=== PATIENT | male | born 1960 | race Hispanic/Latino ===

== ENCOUNTER 2017-01-20 11:12 | Observation (INO) | payer OTHER ==
[~2017-01-20] VITALS: Ht 157.5 cm; Wt 69.8 kg
[~2017-01-20 11:12] MED LIST: ACID CONTROL150 MG PO; ANUSOL-HC25 MG RC; FLOMAX0.4 MG PO; GLUCOPHAGE500 MG PO; IMDUR30 MG PO; LIPITOR10 MG PO; NITROGLYCERIN0.4 MG SL; NORCO 5-325 TA1 EACH PO; OMEPRAZOLE20 MG PO; PERCOCET 5-3251 EACH PO; SEPTRA DS TABL1 EACH PO; TOPROL XL25 MG PO; ZYRTEC10 M3 PO
--- NOTE | 2017-01-20 13:52 | EKG ---
[facility] [address] [facility] [place] [address] \T\ T wave abnormality, consider anterolateral ischemia Abnormal ECG No previous ECGs available Confirmed by GALE SAL MD ([id number]) on 01/20/2017 1:52:04 PM Electronically Signed By: GALE SAL MD 01/20/17 1352 PATIENT NAME: CAMILLA MARTE Electrocardiogram DATE OF : 60 PHYSICIAN: GALE SAL MD REPORT #: [id number] REPORT IS CONFIDENTIAL AND NOT TO BE RELEASED WITHOUT AUTHORIZATION
--- NOTE | 2017-01-20 14:53 | NUR ---
01/20/17 [place] 8322-PATIENT ARRIVED TO PACU ON 10L MASK O2 SAT 100% SB WITH ST DEPRESSION PER DESHAWN CASTELAN. PATIENT NONAROUSABLE. 3 LAP SITES TO ABDOMEN GAUZE AND TAPE ICE APPLIED. GUARDS AT BEDSIDE.
--- NOTE | 2017-01-20 15:50 | NUR ---
PT TO FLOOR FROM PACU. DROWSY BUT WAKES EASILY. RATES PAIN 4/10. SCOPE SITES TO ABD X3 INTACT. 2 CO'S AT BEDSIDE. ANKLE SHACKLES IN PLACE. SCD'S IN PLACE. PT GIVEN SIPS OF WATER. DENIES NEEDS. REPORT FROM COMPACTING MACHINE OPERATOR/TENDER. CALL LIGHT IN REACH. CONT PULSE OX IN PLACE. 98% ON RA.
--- NOTE | 2017-01-20 16:50 | NUR ---
PT REQUESTING PAIN MED FOR 01/02 PAIN. GIVEN 0.3 MG DILUAIDID. SCOPE SITES INTACT. VSS. GIVEN URINAL PER REQUEST. DENIES ADDITIONAL NEEDS. CALL LIGHT IN REACH. CO'S AT BEDSIDE.
[2017-01-20] MEDS ORDERED: STOOL SOFTENER250 MG PO (17:53)
[2017-01-20] MEDS ORDERED: OMEPRAZOLE20 MG PO (17:54)
[2017-01-20] MEDS ORDERED: KONSYL FORMULA PO (17:55)
--- NOTE | 2017-01-20 17:57 | NUR ---
MED REC COMPLETE
--- NOTE | 2017-01-20 18:03 | NUR ---
PT RESTING IN BED. RATES PAIN 09/02. VOIDED 250 ML IN URINAL. SCOPE SITES INTACT. CO AT BEDSIDE. PT DENIES NEEDS. CALL LIGHT IN REACH.
--- NOTE | 2017-01-20 18:46 | NUR ---
PT IS RESTING IN BED SAFELY WITH BOTH CORRECTIONAL OFFICERS IN THE ROOM. PT HAS DRANKEN 1OOML OF APPLE JUICE AND 50ML OF WATER
--- NOTE | 2017-01-20 18:53 | NUR ---
PT RESTING IN BED. RATES PAIN 09/02. SCOPE SITES INTACT. PT SIPPING ON CLEARS. DENIES NAUSEA. CALL LIGHT IN REACH. CO'S AT BEDSIDE.
--- NOTE | 2017-01-20 19:45 | NUR ---
RECIEVED REPORT FROM DAY SHIFT RN. PATIENT IS RESTING IN BED WATHCHING TV. PATIENT DENIES ANY PAIN OR NAUSEA. PATIENT HAS X2 GUARDS IN THE ROOM. PATIENT DENIES ANY FURTHER NEEDS. CALL LIGHT IS WITHIN REACH.
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
--- NOTE | 2017-01-20 21:55 | NUR ---
PATIENT COMPLAINS OF NAUSEA. PATIENT GIVEN PRN NAUSEA MEDICATION PER ORDER. PATIENT DENIES ANY FURTHER NEEDS CALL LIGHT IN REACH.
--- NOTE | 2017-01-21 00:04 | NUR ---
PATIENT IS RESTING IN BED WITH EYES CLOSED. PULSE OX READINGS ARE WNL. CALL LIGHT IN REACH.
--- NOTE | 2017-01-21 01:06 | NUR ---
PATIENTS VITALS TAKEN AND RECORDED. PATIENT DENIES ANY PAIN OR NAUSEA. PATIENT DENIES ANY NEEDS AT THIS TIME. CALL LIGHT IS WITHIN REACH.
--- NOTE | 2017-01-21 01:55 | NUR ---
PATIENT GIVEN PRN PAIN MEDICATION PER ORDER. PATIENT RATES PAIN AT A 5/10 IN HIS ABD. PATIENT DENIES ANY FURTHER NEEDS. CALL LIGHT IS WITHIN REACH.
--- NOTE | 2017-01-21 03:12 | NUR ---
PATIENT IS RESTING IN BED WITH EYES CLOSED. PULSE OX READINGS ARE WNL. CALL LIGHT IN REACH.
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
--- NOTE | 2017-01-21 06:34 | NUR ---
PATIENT AMBUALTED TO THE RESTROOM. PATIENT IS STEADY ON HIS FEET. PATIENT IS A SBA. PATIENT DENIES ANY NAUSEA. PATIENT STATED "I FEEL BLOATED" PATIENT ENCOURAGED TO AMBULATE. PATIENT DENIES THE NEED FOR ANY PAIN MEDICAITON. CALL LIGHT IN REACH.
--- NOTE | 2017-01-21 08:15 | NUR ---
PATIENT UP TO RESTROOM AT THIS TIME. NO OTHER REQUESTS.
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
--- NOTE | 2017-01-21 10:00 | NUR ---
PATIENT DENIES ANY PAIN AT THIS TIME.
--- NOTE | 2017-01-21 10:30 | NUR ---
PATIENT SALINE LOCKED FOR A SHOWER AND UP TO THE SHOWER WITH GUARD AT HIS SIDE. TOLERATED AMBULATING WELL WITHOUT DIZZINESS.
--- NOTE | 2017-01-21 10:55 | NUR ---
PATIENT FINISHED WITH HIS SHOWER AND BACK TO BED, IV FLUID DECREASED TO 75 MLS/HR AND PATIENT RESTING. HIS ABDOMINAL DRESSINGS WERE REMOVED BY DOCTOR TRIANA AND THEY REMAIN INTACT. HE DENIES PAIN AT THIS TIME AND HAS ORDERED A FULL LIQUID DIET FOR LUNCH.
--- NOTE | 2017-01-21 13:20 | NUR ---
PATIENT UP TO THE BATHROOM TO VOID, PATIENT DENIES ANY PAIN AT THIS TIME AND REMAINS STEADY ON HIS FEET. PATIENT HAS NO REQUESTS AND TOLERATED LUNCH WITHOUT ANY NAUSEA.
--- NOTE | 2017-01-21 14:31 | NUR ---
PATIENT C/O 6/10 ABDOMINAL PAIN, PATIENT GIVEN 1 TABLET OF NORCO PO. PATIENTS INCISIONS X3 ARE CDI WITHOUT ANY DRESSINGS. PATIENT DENIES ANY NAUSEA OR OTHER NEEDS AT THIS TIME.
--- NOTE | 2017-01-21 18:01 | NUR ---
PT UP TO BATHROOM. VOIDING WELL, NO BM SINCE SURGERY, PASSING GAS. PAIN WITH MOVEMENT, PO MEDS NOT EFFECTIVE. WOUNDS C/D/I.
--- NOTE | 2017-01-21 19:31 | NUR ---
RECEIVED REPORT FROM DAY SHIFT RN. PATIENT IS RESTING IN BED WATCHING TV. PATIENT DENIES ANY PAIN OR NAUSEA. PATIENT DENIES ANY NEEDS AT THIS TIME. CALL LIGHT IS WTIHIN REACH.
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
--- NOTE | 2017-01-21 22:33 | CONS ---
[facility] [address] [place], [place] [address] Signed DATE OF SERVICE: 01/20/2017 REFERRING PHYSICIAN: Dr. Godoy. CHIEF COMPLAINT: Right lower quadrant abdominal pain. HISTORY OF PRESENT ILLNESS: Avelino is a 51-year-old, gentleman from [facility]. In September of this year, he was here for a CT scan and it showed a 3 mm stone in his right mid ureter with hydronephrosis on that side. He said he has had kidney stones before. The last 5 days, he has had right lower quadrant abdominal pain with s ome nausea and vomiting. He was sent back for another CT scan, and he still has the right hydroureter, but he now has a thickened inflamed appendix. Consequently, I was asked to see him as the general surgeon on-call. Here in emergency room, he is doing f ine. He has received IV fluids, pain control, and antibiotics; however, he is a little anemic. When I asked him, he told me he has black stool for several months. He also reviewed with me his heart history. PAST MEDICAL HISTORY: He had an IN at age 42, acid reflux, hypertension, and hyperlipidemia. PAST SURGICAL HISTORY: Coronary angiogram and colonoscopy. SOCIAL HISTORY: He does not smoke or drink. He is from [facility]. Odessa Gregg is his primary care provider. He is and has 4 children. 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 FAMILY HISTORY: Mom had an IN. Dad lived into his 90s and of old age. There is no family history of colon cancer or polyps. REVIEW OF SYSTEMS: He had 10 systems reviewed, and we t alked about the melena and his heart history. ALLERGIES: Penicillin. MEDICATIONS: Flomax. Metoprolol. Nitroglycerin. Zantac. Simvastatin. Electronically Signed By: PERLA TRIANA MD 01/21/17 2233 PATIENT NAME: AVELINO MARTE CONSULTATION DATE OF : 60 PHYSICIAN: PERLA TRIANA MD REPORT #: [id number] REPORT IS CONFIDENTIAL AND NOT TO BE RELEASED WITHOUT AUTHORIZATION [facility] [address] [place], [place] [address] Signed PHYSICAL EXAMINATION: VITAL SIGNS: Blood pressure 120/98, heart rate 60s, respiratory rate 16, temperature is 97.7. He is 100% on room air. He is 5 feet 2 inches, at 69 kg. GENERAL: Avelino is a 56-year-old, gentleman, lying supine in his ER bed. His 2 officers are with him. He does not appear systemically ill or toxic. He understands and speaks Tunisian very well. LUNGS: Clear to auscultation bilaterally. HEART: Bradycardic without murmur. ABDOMEN: Soft and flat but he is tender at and slightly below McBurney's point. LABORATORY DATA: His white blood cell count is 9.3, hemoglobin 12.1, neutrophils 59. His electrolytes are pending. RADIOGRAPHIC STUDIES: A CT scan from September 30, 2016, shows a 3 mm right mid ureteral stone with hydronephrosis. A CT scan from today shows the same issues, but he now has a thickened inflamed appendix. ASSESSMENT AND PLAN: Avelino is a 56-year-old gentleman who presents as above. He certainly has acute appendicitis. I took the time to call our urologist, Dr. Fernandez, to review the kidney stone. We a re going to proceed with his appendectomy, and we will get him to Dr. Fernandez here in 2 or 3 days for outpatient evaluation and treatment. Also, he has the melena and anemia and I can help him with that as an outpatient as well for upper and lower endoscop y. In the meantime, I reviewed with him the location and function of the appendix. We discussed laparoscopic versus open appendectomy. We have discussed the risks and benefits. He has expressed understanding and would like to proceed as above. MD RAJWINDER Boland/Shane /[id number] cc: Odessa Gregg Electronically Signed By: PERLA TRIANA MD 01/21/17 2233 PATIENT NAME: AVELINO MARTE CONSULTATION DATE OF : 60 PHYSICIAN: PERLA TRIANA MD REPORT #: [id number] REPORT IS CONFIDENTIAL AND NOT TO BE RELEASED WITHOUT AUTHORIZATION
--- NOTE | 2017-01-21 22:33 | OR ---
[facility] [address] [place], [place] [address] Signed DATE OF SERVICE: 01/20/2017 PREOPERATIVE DIAGNOSIS: Acute inflamed appendicitis. POSTOPERATIVE DIAGNOSIS: Acute inflamed appendicitis. PROCEDURE: Laparoscopic appendectomy (prolonged and difficult). ESTIMATED BLOOD LOSS: None. FINDINGS: Avelino had a very thickened inflamed retrocecal appendix. It was densely adherent to the cecum, had to be carefully and bluntly dissected free. The base of the appendix was also quite inflamed and had to be very carefully dissected free also bluntly and with very judicious cautery. All this took extra time and technique and doubled the length of our usual procedure. In this way, his procedure was prolonged and difficult. INDICATIONS: Avelino is a 56-year-old gentleman from [facility]. In September of this year, he h ad a CT scan performed with a 3 mm stone in his right mid ureter. He had hydronephrosis at that time. He seems to be doing fine. He did not have any symptoms. However, over the last 5 days, he developed right lower quadrant abdominal pain with nausea and v omiting. He had a CT scan performed that showed the persistent 3 mm stone in the right ureter with hydronephrosis of his right kidney, but the appendix was clearly thickened and inflamed with periappendiceal inflammation. He was sent to our local emergency room. I have been asked to see him as a general surgeon environmental maintenance worker. I reviewed his records and I met with Avelino in the ER. I explained Avelino the location of function of the appendix. We discussed laparoscopic versus open appendectomy. We also reviewed t h e risks including but not limited to bleeding, infection, scarring, change in contour of the skin, damage to bowel, appendiceal stump leak, postoperative intraabdominal abscess, incisional hernias and other unforeseen comorbidities. I also made it clear to Avelino that he still has the stone in his right ureter and I did take the time to call our urologist Dr. Fernandez who will be seeing him hopefully next week. In addition, he was found to be anemic with a hemoglobin of 12.1. He told me he has had black sto o l now for several months. Once we get him through the appendicitis, he will need an upper and lower endoscopy as well. He had expressed understanding and wished to proceed. In the meantime, he did receive IV fluids, pain control and antibiotics in the ER. PROCEDURE NOTE: Avelion was taken into our operating room, placed in the supine position under general endotracheal tube anesthesia. He was already on preoperative antibiotics along with subcutaneous heparin. SCDs were utilized. Escalante catheter was inserted with return of clear yellow urine without difficulty. He was then prepped and draped in the usual Electronically Signed By: PERLA TRIANA MD 01/21/17 2233 PATIENT NAME: AVELINO MARTE OPERATIVE REPORT DATE OF : 60 PHYSICIAN: PERLA TRIANA MD REPORT #: [id number] REPORT IS CONFIDENTIAL AND NOT TO BE RELEASED WITHOUT AUTHORIZATION [address] [address] Signed sterile fashion. All trocars were placed in the usual positions under direct visualization camera without difficulty. The findings were as above. It took a f ew minutes to free up the cecum from the white line of Toldt and rotate the cecum medially. I was unable to carefully and bluntly separate the appendix from the retrocecal position. We then carefully used additional blunt dissection and cautery to divide the mesoappendix at the base of the appendix where it was joining the cecum. We were able to pass our linear staple and divide the appendix from the cecum itself. The mesoappendix was very thickened and inflamed up next to the appendix itself. But as it we n t retrograde, we found that it was much softer. We were able to come across this area with our vascular load on linear stapler and we divided that quite nicely. However, the appendiceal artery still was coming through our lorena, so we gently cauterized that with good hemostasis. After this, the appendix was placed into an EndoCatch bag and taken out through a right subcostal trocar site. We used our laparoscopic suturing device to pass 2 separate 0 Vicryl sutures on either side of the fascia at the right subcostal trocar site. These were tied down to close this fascia primarily. After this, the gas was allowed to escape. The remaining 2 trocars were removed. We closed the fascia of the supraumbilical trocar site with interrupted simple and [id number] 0 Vicryl sutures. Each trocar site was then infiltrated local anesthetic. Each trocar site was irrigated and suctioned out until clear. The skin and dermis of each trocar site were closed with interrupted 3-0 subcuticular Monocryl sutures. Dry gauze and t ape was applied on all incisions. The Escalante catheter was removed without any resistance whatsoever. Avelino was then awakened from his anesthesia, extubated in the OR, taken to recovery room in stable condition. MD RAJWINDER Boland/Joell /[id number] cc: Odessa Gregg, Nurse Practitioner Electronically Signed By: PERLA TRIANA MD 01/21/17 2233 PATIENT NAME: AVELINO MARTE OPERATIVE REPORT DATE OF : 60 PHYSICIAN: PERLA TRIANA MD REPORT #: [id number] REPORT IS CONFIDENTIAL AND NOT TO BE RELEASED WITHOUT AUTHORIZATION
--- NOTE | 2017-01-21 23:19 | NUR ---
PATIENT IS RESTING IN BED WITH EYES CLOSED, RR 18. PATIENTS BREATHING IS EVEN AND UNLABORED. GUARDS X2 REMAIN IN THE ROOM WITH THE PATIENT. CALL LIGHT IS WITHIN REACH.
--- NOTE | 2017-01-22 01:19 | NUR ---
PATIENT DENIES ANY PAIN OR NAUSEA AT THIS TIME. PATIENT DENIES ANY NEEDS AT THIS TIME. CALL LIGHT IS WITHIN REACH.
--- NOTE | 2017-01-22 03:23 | NUR ---
PATIENTS URINAL EMPTIED. PATIENT DENIES ANY PAIN OR NAUSEA AT THIS TIME. PAITENT DENIES ANY FURTHER NEEDS CALL LIGHT IS WITHIN REACH.
--- NOTE | 2017-01-22 04:07 | NUR ---
PATIENT RATES PAIN AT A 5/10. IN RLQ. PATIENT GIVEN PRN PAIN MEDICATION PER ORDER. PATIENT DENIES ANY NAUSEA. PATIENT DENIES ANY NEEDS AT THIS TIME. CALL LIGHT IS WITHIN REACH.
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
--- NOTE | 2017-01-22 06:25 | NUR ---
PATIENTS VITALS TAKEN AND RECORDED. PATIENT RATES PAIN AT A 2/10 AND DENIES THE NEED FOR PAIN MEDICATION AT THIS TIME. PATIENT DENIES ANY NAUSEA. PATIENT DENIES ANY FURTHER NEEDS. CALL LIGHT IS WITHIN REACH.
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
--- NOTE | 2017-01-22 10:04 | NUR ---
PT HAS BEEN UP WALKING THE HALLS WITH OFFICERS. MADE 4 LAPS, ENCOURAGED TO AMBULATE AT LEAST 2 MORE TIMES THIS SHIFT, 4 LAPS AT A TIME. PT REPORTS PASSING "LOTS" OF GAS, NO BM. NO DIZZINESS, NAUSEA, LIGHTHEADEDNESS WHILE WALKING. VOIDING WELL. TOLERATING FULL LIQUID WELL.
--- NOTE | 2017-01-22 11:16 | NUR ---
ROUNDED WITH DR. TRIANA. PT WILL BE DISCHARGED TODAY BACK TO THE [facility]. DR. TRIANA WILL FOLLOW UP WITH HIM AT THE NEXT [facility] VISIT. [facility] WILL COORDINATE AN APPOINTMENT WITH THE UROLOGIST.
[2017-01-22] MEDS ORDERED: NORCO 5-325 TA1 EACH PO (11:33)
--- NOTE | 2017-01-22 11:56 | NUR ---
CALLED REPORT TO XIOMARA GILL RN AT [facility]. REPORTED FOLLOW UP APPOINTMENTS TO BE MADE, MEDICATIONS, AND ACTIVITY.
--- NOTE | 2017-01-24 09:05 | DS ---
[facility] [address] [place], [place] [address] Signed ADMIT DATE: 01/19/2017 DISCHARGE DATE: 01/22/2017 FINAL DIAGNOSES: 1. Acute appendicitis. 2. Anemia with melena. 3. Retained right ureterolithiasis with hydronephrosis. 4. Bradycardia with history of myocardial infarction. PROCEDURE: Laparoscopic appendectomy. HISTORY OF PRESENT ILLNESS: Avelino is a 56-year-old gentleman from [facility]. He came in September [address] scan for involving right-sided abdominal pain. He had a 3 mm stone in the midportion of the right ureter with hydronephrosis. It seemed to improve, so he has been [facility] the [facility]. He then developed right lower quad r ant abdominal pain which he knew was different. It was associated with nausea and vomiting. He has had it for at least 5 days. He underwent a repeat CT scan to ensure enough he has appendicitis, but also the 3 mm stone is still retained in his right ureter and he still has right hydronephrosis. I was asked to see him as a general surgeon on-call in the emergency room. HOSPITAL COURSE: I met with Avelino, we discussed the above findings. We also found that he was bradycardic with heart rate in the 50s although he is on metoprolol. However, he had an NC when he was 41 and his mother was quite young when she of an NC. I explained to Avelino that he might consider discussing that with his providers at the [facility] and consider seeing a lining feller electively. Also, I took the time to call Dr. Vandana Fernandez, our urologist here in [place]. He needs to see her next week, so they can make plans to remove that stone in his right ureter. In addition, he is little anemic with a hemoglobin of 12.1 and a mean cell volume of 78. He told me that his stool was black. He said a number of years ago he came to the hospital because of rectal bleeding and had a colonoscopy and a clip was placed and things seemed to be good after that. He really needs to consider an upper a nd lower endoscopy again given his current situation. In the meantime, I explained to Avelino that we needed to take him to the operating room for his appendix. Avelino was taken to the operating room that same day, then underwent laparoscopic appendectom y. It was prolonged and difficult. His appendix was retrocecal and densely adherent to the cecum itself. It took extra time to dissect that free as well as at the Electronically Signed By: PERLA TRIANA MD 01/24/17 0905 PATIENT NAME: AVELINO MARTE DISCHARGE SUMMARY DATE OF : 60 PHYSICIAN: PERLA TRIANA MD REPORT #: [id number] REPORT IS CONFIDENTIAL AND NOT TO BE RELEASED WITHOUT AUTHORIZATION [address] [address] Signed base of the cecum where we divided that with the stapler. Since then, he had an expected pos t op course. He is now ambulating well in the hallways, passing lots of flatus, and tolerating a full liquid diet. In the meantime, his urinalysis came back unremarkable and his creatinine was normal at 1.02 confirming that the left kidney is working fine. At this point, he has made good progress. All incisions are healing well. There are no local signs or symptoms of infection. His abdominal exam was benign. Consequently, we [facility] DISCHARGE PLANS AND MEDICATIONS: Avelino is written for [employer] 5/325 1-2 tablets p.o. q.4-6 hours p.r.n. pain, we can dispense 40 tablets with no refills. He can resume all of his chronic medications. He can continue a [facility] at the [facility]. He is more t steele welcome to perform his activities of daily living including walking up and down stairs and showering and bathing as usual. He is welcome to return to work when he feels up to it. I have asked him not to lift over about 25 pounds for a month, 50 pounds second month, and then after that, no restrictions. I will see him back at the [facility] in a month or so for followup; however, he needs to see Dr. Vandana Fernandez in the next 3-[address] [facility] in order to evaluate the retained right ureteral stone with hydronephrosis. In addition, he needs to consider both upper and lower endoscopy with me to consider the fact that he is anemic and is describing melena. In addition, his mother had a heart attack at a young age and he had a heart attack around age 41 and he was bradycardic here in the hospital in the 50s but he is now in the low 60s. Nevertheless, he might consider reviewing that with his providers and consider cardiac evaluation since he has been more than 10 years since he has seen anyone. I reviewed all this with Avelino in detail. He has expressed understanding and agrees with the above plan. MD RAJWINDER Boland/Shane /[id number] cc: Perla Triana MD Electronically Signed By: PERLA TRIANA MD 01/24/17 0905 PATIENT NAME: AVELINO MARTE DISCHARGE SUMMARY DATE OF : 60 PHYSICIAN: PERLA TRIANA MD REPORT #: [id number] REPORT IS CONFIDENTIAL AND NOT TO BE RELEASED WITHOUT AUTHORIZATION [address] Cayetano Winchester Electronically Signed By: PERLA TRIANA MD 01/24/17 09 PATIENT NAME: AVELINO MARTE DISCHARGE SUMMARY DATE OF : 60 PHYSICIAN: PERLA TRIANA MD REPORT #: [id number] REPORT IS CONFIDENTIAL AND NOT TO BE RELEASED WITHOUT AUTHORIZATION
== END 2017-01-22 12:15 | disposition home or self-care (01) ==
LOC: ED 11:12 → MS 11:14
PROVIDERS: ADMIT Colon & Rectal Surgery
PROC: 0DTJ4ZZ Resection of Appendix, Percutaneous Endoscopic Approach (ICD-10-PCS; principal; 2017-01-20 14:00)
DX: K35.3 Acute appendicitis with localized peritonitis (principal); D64.9 Anemia, unspecified; K92.1 Melena; Z88.0 Allergy status to penicillin; N13.2 Hydronephrosis with renal and ureteral calculous obstruction; R00.1 Bradycardia, unspecified; Z79.899 Other long term (current) drug therapy; I10 Essential (primary) hypertension; E78.5 Hyperlipidemia, unspecified; K21.9 Gastro-esophageal reflux disease without esophagitis; I25.2 Old myocardial infarction
CPT/HCPCS: 00840; 80053; 81001; 85025; 93005; 93010; 94760; 94762; 96361; 96365; 96372; 96375; 96376; 99285; G0378; J0330; J0696; J1644; J1885; J2270; J2405; J2704; J3010; J7120

== ENCOUNTER 2017-02-06 05:50 | Day surgery (SDC) | payer OTHER ==
[~2017-02-06] VITALS: Ht 157.5 cm; Wt 69.4 kg
[~2017-02-06 05:50] MED LIST changes: +KONSYL FORMULA PO; +STOOL SOFTENER250 MG PO
--- NOTE | 2017-02-06 08:18 | NUR ---
02/06/17 0818 [place] 0812-PATIENT ARRIVED TO PACU ON 10L MASK O2 SAT 100% ORAL AIRWAY IN PLACE. NON AROUSABLE. NO DRAINAGE TO [place] AREA. GUARD AT BEDSIDE. SR WITH ST DEPRESSION BASELINE PER TRANSFER MAN.
--- NOTE | 2017-02-06 09:21 | NUR ---
LE 09 PT RETURNED FROM PACU SLEEPY C/O R KIDNEY PAIN 01/02. VITAL SIGNS TAKEN. 09 DILAUDID 0.25MG GIVEN IVP. PT USING URINAL. TRANSPORT GUARDS AT BEDSIDE. 0909 PT STATES "I FEEL BETTER."
[2017-02-06] MEDS ORDERED: CIPRO500 MG PO (09:42)
[2017-02-06] MEDS ORDERED: NORCO 5-325 TA1 EACH PO (09:42)
[2017-02-06] MEDS ORDERED: OXYBUTYNIN CHLOR5 MG PO (09:43)
--- NOTE | 2017-02-06 10:43 | NUR ---
LE 1015 PT VOIDED 250ML RED COLORED URINE. NO C/O'S. 1035 DC INSTRUCTIONS GIVEN TO PT/GUARDS. LEFT VIA W/C. 1040 REPORT CALLED OUT TO [facility].
--- NOTE | 2017-02-07 20:29 | OR ---
[facility] [address] [place], [place] [address] Signed DATE OF PROCEDURE: 02/06/17 PREOPERATIVE DIAGNOSES Npngrspy-zl-slvzoi right-sided hydroureteronephrosis. History of a 3-mm right ureteral calculus. Intermittent right flank discomfort. POSTOPERATIVE DIAGNOSES Tfzxgizx-wa-znkqht right-sided hydroureteronephrosis. History of a 3-mm right ureteral calculus. Intermittent right flank discomfort. PROCEDURE PERFORMED Diagnostic cystoscopy with right retrograde pyelogram. Insertion of a 6 x 24 cm ureteral stent into the right ureter. SURGEONS: Sara Teixeiar MD. ANESTHESIA: General. ESTIMATED BLOOD LOSS: None. COMPLICATIONS: None. SPECIMENS: None. INDICATIONS FOR PROCEDURE Mr. Moran is a 56-year-old gentleman who recently presented to the emergency department with severe right lower quadrant pain. He is found to be experiencing acute appendicitis and subsequently underwent a laparoscopic appendectomy by Dr. Douglas. At that time, the CT scan also revealed the presence of odomiebk-nf-navbxx right hydroureteronephrosis to the level of the iliac brim. This reportedly had been present in the CT scan from September 2016. At that time, a 3-mm stone was seen as the cause of the obstruction in the mid right ureter. Once the patient recovered from his laparoscopic appendectomy, he was prepared for surgery to undergo ureteroscopy and stone extraction. The patient's urine has remained clear on recent urinalyses. He presents today to undergo right ureteroscopy with stone extraction and ureteral stent insertion. OPERATIVE FINDINGS On cystoscopy, there was no evidence of any suspicious masses, lesions, or stones within the bladder. The bilateral ureteral orifices are in their normal anatomic location and effluxing clear urine on both sides. Electronically Signed By: SARA TEIXEIRA MD 02/07/172028 PATIENT NAME: CAMILLA MARTE OPERATIVE REPORT DATE OF : 60 PHYSICIAN: SARA TEIXEIRA MD REPORT #: [id number] REPORT IS CONFIDENTIAL AND NOT TO BE RELEASED WITHOUT AUTHORIZATION [facility] [address] [place], [place] [address] Signed The patient has no evidence of urethral stricture or hypertrophy of the prostatic urethra, although mild calcifications are present in the prostate. Right retrograde pyelogram was performed with some difficulty as we only had a 4-Dominican whistle-tip ureteral catheter. The contrast did not make it up into the right kidney. The contrast only advanced to around the mid ureter. It is not certain if this is due to obstruction or technical difficulties with the small diameter ureteral catheter. Attempts were made to pass an 1113 ureteral access sheath into the right ureter over a Sensor wire. The ureteral orifice and distal ureter were too diminutive to allow passage of the ureteral access sheath. A 6 x 24 cm contour double-J ureteral stent was inserted into the right collecting system with a mild amount of difficulty. This is due to the length of the stent. The patient is short of stature and in the future will require a 22-cm stent. DESCRIPTION OF PROCEDURE After informed consent was obtained, the patient was taken back to the operative room. He was transferred from the [facility] to operating room table where general anesthesia was induced. He was placed in the dorsal lithotomy position and his genitalia were prepped and draped in sterile fashion. Using a 30-degree lens on 22-1/2-Dominican sheath, the cystoscope was inserted through his urethra into his bladder under direct visualization. Panendoscopic views to the bladder and prostatic urethra were then performed. Please see above findings. Attention was turned to the right ureteral orifice. I attempted to pass a cone-tipped catheter through the scope, however, this was unsuccessful. Nursing staff was able to locate a 4-Dominican whistle-tip catheter. I was able to pass this into the right distal ureter. Right retrograde pyelogram was performed. Please see above findings. The catheter was removed and then a 0.035 Sensor wire was inserted into the right ureter and up into the right collecting system. Adequate placement of the wire was confirmed on fluoroscopy. I then attempted to pass an 05/08 ureteral access sheath into the right distal ureter. After multiple attempts to pass the sheath, I determined that the patient's distal ureter was too diminutive to allow passage of the sheath. Over the indwelling wire, I passed a 6 x 24 cm contour double-J ureteral stent into the right collecting system, under direct vision. I did meet some resistance towards the end; however, I believe this was due to the length of the stent and not any obvious obstruction within the collecting system. An adequate proximal coil was seen on fluoroscopy in the right renal pelvis. There was an adequate coil within the bladder; however, the stent traverses to the other side of the bladder and then coils, again due to the length of the stent. The patient's bladder was then drained and the cystoscope was removed. The procedure was then terminated. The patient tolerated the procedure well without any complication. He will be transferred to the postanesthesia care unit in stable condition. DISPOSITION Mr. Moran will be transferred back to [facility] later this morning in stable Electronically Signed By: SARA TEIXEIRA MD 02/07/172028 PATIENT NAME: CAMILLA MARTE OPERATIVE REPORT DATE OF : 60 PHYSICIAN: SARA TEIXEIRA MD REPORT #: [id number] REPORT IS CONFIDENTIAL AND NOT TO BE RELEASED WITHOUT AUTHORIZATION [address] [place], [place] [address] Signed condition. He was given a prescription for [place] 5/325 one tablet p.o. q.8 hours p.r.n. pain, #15; Cipro 500 mg 1 tablet p.o. b.i.d. for a total of 5 days; along with Ditropan 5 mg p.r.n. urinary frequency. He will be scheduled to return back to the operating room in 1 week to undergo definitive diagnostic right nephroureteroscopy with possible residual stone extraction. MD ALIYA Cortes/Shane /[id number] cc: CHAN Carreon Electronically Signed By: SARA TEIXEIRA MD 02/07/179 PATIENT NAME: CAMILLA MARTE OPERATIVE REPORT DATE OF : 60 PHYSICIAN: SARA TEIXEIRA MD REPORT #: [id number] REPORT IS CONFIDENTIAL AND NOT TO BE RELEASED WITHOUT AUTHORIZATION
== END 2017-02-06 10:35 | disposition home or self-care (01) ==
LOC: DS 05:50
PROVIDERS: Urology
PROC: 0T768DZ Dilation of Right Ureter with Intraluminal Device, Via Natural or Artificial Opening Endoscopic (ICD-10-PCS; principal; 2017-02-06 06:45)
PROC: BT1DYZZ Fluoroscopy of Right Kidney, Ureter and Bladder using Other Contrast (ICD-10-PCS; 2017-02-06 06:45)
DX: N13.30 Unspecified hydronephrosis (principal); I10 Essential (primary) hypertension; E78.5 Hyperlipidemia, unspecified; K21.9 Gastro-esophageal reflux disease without esophagitis; Z87.442 Personal history of urinary calculi; Z79.899 Other long term (current) drug therapy; Z90.49 Acquired absence of other specified parts of digestive tract; Z82.49 Family history of ischemic heart disease and other diseases of the circulatory system; Z88.0 Allergy status to penicillin
CPT/HCPCS: 00910; 74450; C2617; J1100; J1170; J1885; J1956; J2250; J2405; J2704; J2765; J3010; J7120; Q9967

== ENCOUNTER 2017-02-20 05:50 | Day surgery (SDC) | payer OTHER ==
[~2017-02-20] VITALS: Ht 157.5 cm; Wt 69.4 kg
[~2017-02-20 05:50] MED LIST changes: +CIPRO500 MG PO; +OXYBUTYNIN CHLOR5 MG PO
--- NOTE | 2017-02-20 08:49 | NUR ---
02/20/17 0849 [place] 0835- PT ARRIVED TO PACU MAINTAIN OWN AIRWAY AND ON 10L NC
[2017-02-20] MEDS ORDERED: BACTRIM DS TAB1 EACH PO (10:07)
--- NOTE | 2017-02-20 11:02 | NUR ---
LE 0940 PT RETURNED FROM PACU SLEEPY C/O R FLANK PAIN 2/. WATER AND APPLE JUICE GIVEN. 1000 EATING CRACKERS AND PUDDING. 1028 C/O R FLANK PAIN 3/10. TWO [place] 5/325 GIV[address] PO. 1040 VOIDED 600ML PINK COLORED URINE. GETTING DRESSED. DC INSTRUCTIONS GIVEN. 1050 UP TO BATHROOM. VOIDED. 1055 LEFT VIA W/C. 1100 REPORT CALLED OUT TO [facility].
--- NOTE | 2017-02-23 07:55 | OR ---
[facility] [address] [place], [place] [address] Signed DATE OF PROCEDURE: 02/20/17 PREOPERATIVE DIAGNOSIS Severe right hydroureteronephrosis due to a long-standing obstructing mid ureteral calculus, status post cystoscopy with right ureteral stent insertion. POSTOPERATIVE DIAGNOSES History of long-standing obstructing right ureteral calculus, now with a 1.5 cm right ureteral stricture. Uiywgdhv-of-iefyfv right hydroureteronephrosis to the level of the ureteral stricture. History of nephrolithiasis. PROCEDURES PERFORMED Diagnostic cystoscopy with right retrograde pyelogram. Right diagnostic nephroureteroscopy. Indwelling right ureteral stent exchange. SURGEON: Sara Teixeira MD. ANESTHESIA: General. ESTIMATED BLOOD LOSS: Minimal. COMPLICATIONS: None. SPECIMENS: None. DRAINS A 6 x 22 cm contour double-J ureteral stent inserted in the right ureter. INDICATIONS FOR PROCEDURE Mr. Moran is a very pleasant, 56-year-old gentleman who is well known to me. He was found to have an obstructing 3 mm right mid ureteral calculus in September of 2016. At that time, this was not addressed; however, he returned back to the hospital in December of 2016 with a bout of acute appendicitis. A repeat CT scan at that time revealed continued moderate to severe right hydroureteronephrsis on the right side. The dilation begins in the right kidney and ends at the level of the right mid ureter, near the pelvic brim. The patient underwent right ureteral stent insertion approximately 10 days ago and now presents today to undergo extraction of any residual ureteral calculus on the right side. OPERATIVE FINDINGS Electronically Signed By: SARA TEIXEIRA MD 02/23/17 0755 PATIENT NAME: CAMILLA MARTE OPERATIVE REPORT DATE OF : 60 PHYSICIAN: SARA TEIXEIRA MD REPORT #: [id number] REPORT IS CONFIDENTIAL AND NOT TO BE RELEASED WITHOUT AUTHORIZATION [facility] [address] [place], [place] [address] Signed On cystoscopy, there was no evidence of any suspicious massive lesions or stones. He has an indwelling right ureteral stent. His prostate is of negligible size. The right retrograde pyelogram reveals a tortuous proximal right ureter as well as a kink and a narrowing in the ureter at the level of the pelvic brim. Retrograde pyelogram did reveal a small filling defect that could have represented a stone within the lumen of the ureter. Diagnostic right nephroureteroscopy revealed no evidence of any stones within the right renal pelvis. Close inspection of the entire ureter was performed, in particular the area of tortuosity and narrowing of the right ureter. I was unable to locate any stone within the lumen of the ureter. This area appeared to be very edematous and with scar tissue present. Again, no ureteral calculus could be visualized in the lumen of the ureter. A fresh 6 x 22 cm contour double-J ureteral stent was inserted into the right ureter without difficulty. DESCRIPTION OF PROCEDURE After informed consent was obtained, the patient was taken back to the operating room[facility] where general anesthesia was induced. He was placed in the dorsal lithotomy position and his genitalia prepped and draped in sterile fashion. Using a 30-degree lens on a 23-Ugandan introducer, rigid cystoscope was inserted through his urethra and into his bladder. His indwelling right ureteral s tent was removed fully intact. A 0.035 Sensor wire was inserted through the right ureter up into the right renal pelvis under fluoroscopic guidance. Over this Sensor wire, an 11/13-Ugandan ureteral access sheath was passed into the right ureter under fluoroscopic guidance without difficulty. Prior to insertion of the ureteral access sheath, a cone-tipped catheter was advanced to the level of the right UO and a right retrograde pyelogram was performed. Please see above findings. Once the ureteral access sheath was in place, I repeated the retrograde using the inner cannula to confirm placement of the ureteral access sheath. The cannula was removed and the sheath was left in place. A flexible ureteral scope was then advanced through the sheath and into the rig h t ureter and right collecting system. A complete diagnostic flexible nephroscopy was performed. Please see above findings. I then performed a thorough diagnostic ureteroscopy on the right side. Please see above findings. The area of the mid ureter at the level of the pelvic brim was very tortuous, edematous, and there was a lot of redundant tissue present. I was unable to locate the calculus within the lumen of the ureter. The remainder of the distal ureter was of normal caliber with no evidence of stone present. A right retrograde pyelogram was then repeated to get a better picture of the actual area of the ureteral stricture which appears to be at the level between L4 and L5. Once the ureteroscopy was completed, the ureteral access sheath was removed, leaving the Sensor wire behind within the right collecting system. Over the wire, a 6 x 22 cm contour double-J ureteral stent was inserted in the right ureter under direct vision. The wire was pulled and adequate proximal coil was seen within the right renal Electronically Signed By: SARA TEIXEIRA MD 02/23/17 0755 PATIENT NAME: JER PURDYCOSMOCAMILLA OPERATIVE REPORT DATE OF : 60 PHYSICIAN: SARA TEIXEIRA MD REPORT #: [id number] REPORT IS CONFIDENTIAL AND NOT TO BE RELEASED WITHOUT AUTHORIZATION [facility] [address] [place], [place] [address] Signed pelvis along with adequate distal coil within the bladder. The procedure was then terminated once the patient's bladder was drained using the cystoscope. The patient tolerated the procedure well without any complication. He will now be transferred to the post anesthesia care unit in stable condition. DISPOSITION The patient will be [facility] today with his indwelling ureteral stent in place. He will be given 3 days' worth of Bactrim for prophylactic antibiotics. He will be scheduled to return to clinic in 2 weeks and at that time, I will discuss with him the need for his care to be transferred to a higher level of care, likely at [facility] in [place]. It appears as though he will require excision of this ureteral stricture along with the ureteroureterostomy; however, balloon ureteral dilation is possible; however, I did not feel comfortable doing that given the tortuosity of the ureter. I will explain all of this in a couple of weeks when the patient presents back to clinic. MD ALIYA Cortes/Shane /[id number] cc: CHAN Carreon Electronically Signed By: SARA TEIXEIRA MD 02/23/17 0755 PATIENT NAME: JER PURDYCAMILLA WILBURN OPERATIVE REPORT DATE OF : 60 PHYSICIAN: SARA TEIXEIRA MD REPORT #: [id number] REPORT IS CONFIDENTIAL AND NOT TO BE RELEASED WITHOUT AUTHORIZATION
== END 2017-02-20 10:55 | disposition home or self-care (01) ==
LOC: DS 05:50 → OPS 05:50 → DS 06:45 → OPS 10:55
PROVIDERS: Urology
PROC: 0T768DZ Dilation of Right Ureter with Intraluminal Device, Via Natural or Artificial Opening Endoscopic (ICD-10-PCS; principal; 2017-02-20 06:45)
PROC: BT1DYZZ Fluoroscopy of Right Kidney, Ureter and Bladder using Other Contrast (ICD-10-PCS; 2017-02-20 06:45)
DX: Z46.6 Encounter for fitting and adjustment of urinary device (principal); N13.2 Hydronephrosis with renal and ureteral calculous obstruction; I10 Essential (primary) hypertension; E78.5 Hyperlipidemia, unspecified; K21.9 Gastro-esophageal reflux disease without esophagitis; Z79.899 Other long term (current) drug therapy; Z90.49 Acquired absence of other specified parts of digestive tract; Z82.49 Family history of ischemic heart disease and other diseases of the circulatory system; Z88.0 Allergy status to penicillin
CPT/HCPCS: 00910; 74420; C2617; J1100; J1956; J2250; J2405; J2704; J2765; J3010; J7120; Q9967